=== PATIENT | male | born 1960 | race Caucasian/White ===

== ENCOUNTER 2018-01-09 08:42 | Day surgery (SDC) | payer MEDICARE ==
[~2018-01-09] VITALS: Ht 175.3 cm; Wt 102.1 kg
[~2018-01-09 08:42] MED LIST: AMLODIPINE5 MG PO; ASPIRIN 8181 MG PO; LISINOPRIL10 MG PO; MULTI VIT PO
[2018-01-09 11:44] VITALS: BP 127/72
== END 2018-01-09 11:56 | disposition home or self-care (01) ==
LOC: ENDO 08:42
PROVIDERS: ATTEND Internal Medicine Gastroenterology
PROC: 0DJD8ZZ Inspection of Lower Intestinal Tract, Via Natural or Artificial Opening Endoscopic (ICD-10-PCS; principal; 2018-01-09)
DX: Z12.11 Encounter for screening for malignant neoplasm of colon (principal); K64.4 Residual hemorrhoidal skin tags; K57.30 Diverticulosis of large intestine without perforation or abscess without bleeding; K64.8 Other hemorrhoids; E78.00 Pure hypercholesterolemia, unspecified; I10 Essential (primary) hypertension